=== PATIENT | male | born 1985 | race Hispanic/Latino ===

== ENCOUNTER → 2018-07-22 | Day surgery (SDC) | payer OTHER ==
[~2018-07-22] MED LIST: FENTANYL CITRATE/PF 100MCG/2 ML INJ ONE; LIDOCAINE HCL 2% LOCAL INJ 5 ML SDV VIAL INJ ONE; MIDAZOLAM HCL 2 MG/2 ML VIAL ONE; PANTOPRAZOLE SO40 MG PO; PROPOFOL IV EMULSION 10 MG/ML 20 ML VIAL ONE; ROCURONIUM BROMIDE 10 MG/ML 5ML VIAL ONE; SUCCINYLCHOLINE 200 MG/10 ML SYR ONE
--- OUTSIDE RECORDS SUMMARY | 2018-07-22 14:13 | XMS REPORT | Clinical Summary ---
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 Active HYDROcodone-acetaminophen Take 1 tablet 0 (VICODIN) 2.5-500 mg per by mouth tabletIndications: Pain every 6 (six) hours as needed. Active zolpidem (AMBIEN) 10 mg Take 10 mg by 0 tablet mouth every night as needed. Active aprepitant (EMEND) Take 125 mg 3 kit 3 125-80-80 mg capsule by mouth on 4 day 1 of chemo, and take 80 mg on days 2 and 3 of chemotherapy. Active dexamethasone (DECADRON) Take 8 mg (2 30 tablet 2 4 MG tablet tablets) on 4 days 2, 3 and 4 of chemotherapy Active ondansetron (ZOFRAN) 8 MG Take 8 mg by 90 tablet 3 tablet mouth on days 4 2, 3 and 4 of chemotherapy, and every 8 hours as needed for nausea Active LORazepam (ATIVAN) 1 MG Take every 8 60 tablet 2 tablet hours as 4 needed for nausea Status Hospital, Clinic, or Ordered Dose Route Frequency Start End Date Other Facility Date Administered Medication Active sodium chloride 0.9% (NS) 10 mL IK As needed 12/26/19 flush 10 mL 14 Active heparin (PF) injection 500 Units IK As needed 12/26/19 syringe 500 Units 14 Active heparin (PF) injection 500 Units IK As needed 01/09/20 syringe 500 Units 14 Active heparin (PF) injection 500 Units IK As needed 01/10/20 syringe 500 Units 14 Active sodium chloride 0.9% (NS) 10 mL IK As needed 01/30/20 flush 10 mL 14 Active heparin (PF) injection 500 Units IK As needed 01/30/20 syringe 500 Units 14 Active aprepitant (EMEND) 125 mg Oral Once 01/30/20 capsule 125 mg 14 Active sodium chloride 0.9% (NS) 10 mL IK As needed 02/20/20 flush 10 mL 14 Active heparin (PF) injection 500 Units IK As needed 02/20/20 syringe 500 Units 14 Ended iopamidol (ISOVUE-300) 100 mL IV IMG once as needed 07/27/19 injection 100 mL 18 8 Active Problems Problem Noted Date Dysphagia 11/19/2013 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 Encounters Care Team Description Date Type Specialty Freddy Burrows MD Throat pain (Primary Dx) 07/26/2017 Outside Orders Radiology after 07/21/2017 Family History Medical History Relation Name Comments Cancer Paternal pt believes breast ca Grandmother Relation Name Status Comments Paternal Grandmother Social History Date Tobacco Use Types Packs/Day Years Used Never Smoker Alcohol Use Drinks/Week oz/Week Comments No Sex Assigned at Date Recorded Not on file Industry Job Start Date Occupation Not on file Not on file Not on file Travel End Travel History Travel Start No recent travel history available. Last Filed Vital Signs Not on file Plan of Treatment Not on file Procedures Comments Procedure Name Priority Date/Time Associated Diagnosis CT SOFT TISSUE NECK WITH Routine 07/26/2017 IV CONTRAST 12:[address] CHEST WITH IV CONTRAST Routine 07/26/2017 12:00 PM CDT POCT-CREATININE Routine 07/26/2017 11:46 AM CDT after 07/21/2017 Results * CT chest with IV contrast (07/26/2017 12:00 PM CDT) Narrative Performed At FINAL REPORT [employer] [facility] HISTORY: r07.0 pain in throat COMPARISON : 09/19/2013 Technique : Multiple axial images of the chest were performed from the lung apices to the lung bases with the administration of IV contrast. Images were presented in both the lung and soft tissue windows. This exam was performed according to our departmental dose optimization program which includes automated exposure control, adjustment of the mA and/or kV according to patient size and/or use of iterative reconstructive technique. Comment: The thyroid gland is within normal limits. A right-sided Port-A-Cath is in place. There is no hilar or axillary lymphadenopathy. The previously seen enlarged superior and anterior mediastinal lymph nodes have significantly diminished in size/resolved. There are a few increased numbers of nonspecifically prominent superior mediastinal lymph nodes with the largest measuring up to 0.7 x 0.7 cm. The visualized portions of the spleen, adrenal glands, pancreas, and kidneys are within normal limits. There is a small left sided fat containing diaphragmatic hernia. There is hepatic steatosis. The osseous structures as well as the subcutaneous soft tissues are without any abnormalities. There is a right middle lobe calcified granuloma. There is no pleural effusion, pneumothorax or infiltrate. Impression: 1. Previously seen superior and anterior mediastinal lymph nodes have significantly diminished in size. There are a few remaining increased numbers of nonspecific mildly prominent superior mediastinal lymph nodes. 2. Hepatic steatosis. 3. Right lung calcified granuloma. Signed: Keira Malcolm MD Report Verified Date/Time:07/26/2017 12:59:15 Reading Location: [facility] Diagnostic Imaging Reading Room - [place] [address] Procedure Note Interface, External Ris In - 07/26/2017 1:01 PM CDT FINAL REPORT HISTORY: r07.0 pain in throat COMPARISON : 09/19/2013 Technique : Multiple axial images of the chest were performed from the lung apices to the lung bases with the administration of IV contrast. Images were presented in both the lung and soft tissue windows. This exam was performed according to our departmental dose optimization program which includes automated exposure control, adjustment of the mA and/or kV according to patient size and/or use of iterative reconstructive technique. Comment: The thyroid gland is within normal limits. A right-sided Port-A-Cath is in place. There is no hilar or axillary lymphadenopathy. The previously seen enlarged superior and anterior mediastinal lymph nodes have significantly diminished in size/resolved. There are a few increased numbers of nonspecifically prominent superior mediastinal lymph nodes with the largest measuring up to 0.7 x 0.7 cm. The visualized portions of the spleen, adrenal glands, pancreas, and kidneys are within normal limits. There is a small left sided fat containing diaphragmatic hernia. There is hepatic steatosis. The osseous structures as well as the subcutaneous soft tissues are without any abnormalities. There is a right middle lobe calcified granuloma. There is no pleural effusion, pneumothorax or infiltrate. Impression: 1. Previously seen superior and anterior mediastinal lymph nodes have significantly diminished in size. There are a few remaining increased numbers of nonspecific mildly prominent superior mediastinal lymph nodes. 2. Hepatic steatosis. 3. Right lung calcified granuloma. Signed: Keira Malcolm MD Report Verified Date/Time: 07/26/2017 12:59:15 Reading Location: [facility] Diagnostic Imaging Reading Room - [place] [address] Performing Organization Address City/State/Zipcode Phone Number [employer] * CT neck soft tissue with IV contrast (07/26/2017 12:00 PM CDT) Narrative Performed At FINAL REPORT [employer] CT neck with contrast 07/26/2017 1:29 PM CLINICAL HISTORY: r07.0 pain in throat TECHNIQUE: Axial contrast-enhanced CT images of the neck were obtained. Axially acquired data were reformatted in coronal and sagittal planes for further analysis. This examination was performed according to our departmental dose optimization program, which includes automated exposure control, adjustment of the mA and/or kV according to patient size, and/or use of iterated reconstruction technique. COMPARISON: 09/19/2013 FINDINGS: There is no mass or abnormal enhancement in the aerodigestive tract or surrounding soft tissue. There is no lymphadenopathy. There are no fluid collections. The salivary and thyroid glands are unremarkable. The visualized brain, orbits, paranasal sinuses, and tympanomastoid cavities are unremarkable. There is a deep caries in the right maxillary third molar. There is congenital spinal stenosis. Superimposed degenerative changes at C5-6 and C6-7 resulting in high-grade central canal stenosis. The visualized upper thorax is unremarkable. IMPRESSION: 1. No aerodigestive tract or soft tissue mass. 2. No cervical lymphadenopathy. 3. Dental disease. 4. Cervical spondylosis. Signed: Dirk Sandoval MD Report Verified Date/Time:07/26/2017 13:52:43 Reading Location: [facility] Radiology Reading Room Procedure Note Interface, External Ris In - 07/26/2017 1:54 PM CDT FINAL REPORT CT neck with contrast 07/26/2017 1:29 PM CLINICAL HISTORY: r07.0 pain in throat TECHNIQUE: Axial contrast-enhanced CT images of the neck were obtained. Axially acquired data were reformatted in coronal and sagittal planes for further analysis. This examination was performed according to our departmental dose optimization program, which includes automated exposure control, adjustment of the mA and/or kV according to patient size, and/or use of iterated reconstruction technique. COMPARISON: 09/19/2013 FINDINGS: There is no mass or abnormal enhancement in the aerodigestive tract or surrounding soft tissue. There is no lymphadenopathy. There are no fluid collections. The salivary and thyroid glands are unremarkable. The visualized brain, orbits, paranasal sinuses, and tympanomastoid cavities are unremarkable. There is a deep caries in the right maxillary third molar. There is congenital spinal stenosis. Superimposed degenerative changes at C5-6 and C6-7 resulting in high-grade central canal stenosis. The visualized upper thorax is unremarkable. IMPRESSION: 1. No aerodigestive tract or soft tissue mass. 2. No cervical lymphadenopathy. 3. Dental disease. 4. Cervical spondylosis. Signed: Dirk Sandoval MD Report Verified Date/Time: 07/26/2017 13:52:43 Reading Location: [facility] Radiology Reading Room Performing Organization Address City/[facility] [place] Phone Number RIS * POC-Creatinine (07/26/2017 11:46 AM CDT) POC-Creatinine 0.7Comment: TESTED AT [facility]-KG 0.6 - 1.3 mg/dL [facility] [address] [place] [address] POC-EGFR 131 mL/min/1.73M2 [facility] Specimen Blood Narrative Performed At Performing Organization Address City/[facility] [place] Phone Number [facility] [address] [place] [address] [facility] after 07/21/2017 Insurance Payer Benefit Subscriber ID Type Phone Address Plan / Group MEDICARE MEDICARE A xxxxxxxxxx Medicare B [facility] [place] HMO xxxxxxxxx HMO/POS CARE POS SELECT CHOICE
--- OUTSIDE RECORDS SUMMARY | 2018-07-22 14:14 | XMS REPORT ---
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 Allergies, Adverse Reactions, Alerts This patient has no known allergies or adverse reactions. Medications This patient has no known medications. Results Test Description Test Time Test Comments Text Results Atomic Results Result Comments CT, SOFT TISSUE NECK, CONTRAST 2017-07-26 13:52:[address] neck with contrast 07/26/2017 1:29 PM CLINICAL HISTORY: r07.0 pain in throat TECHNIQUE: Axial contrast-enhanced CT images of the neck were obtained. Axially acquired data were reformatted in coronal and sagittal planes for further analysis. This examination was performed according to our departmental dose optimization program, which includes automated exposure con trol, adjustment of the mA and/or kV according [...] 1. No aerodigestive tract or soft tissue mass.2. No cervical lymphadenopathy.3. Dental disease.4. Cervical spondylosis. Signed: Dirk Sandoval Verified Date/Time: 07/26/2017 13:52:43 Reading Location: [facility] Radiology Reading Room , CHEST, WITH CONTRAST 2017-07-26 12:59:00 FINAL REPORT HISTORY: r07.0 pain in throat [...] 3. Right lung calcified granuloma. Signed: Keira Hortaort Verified Date/Time: 07/26/2017 12:59:15 Reading Location: [facility] Diagnostic Imaging Reading Room - [place] [address] -CREATININE 2017-07-26 11:52:00 POC-CREATININE (BEAKER) (test ovxa=1697) 0.7 mg/dL 0.6-1.3 TESTED AT [address] [address] POC-EGFR (BEAKER) (test kged=0221) 131 mL/min/1.73M2
[2018-07-22 17:19] VITALS: BP 96/65
--- NOTE | 2018-07-23 08:38 | Operative Report ---
DATE OF PROCEDURE: 07/22/2018 SURGEON: Jimbo Spann MD PROCEDURES: Esophagogastroduodenoscopy with biopsies and esophageal dilatation. INDICATIONS FOR PROCEDURE: Dysphagia to solids, history of CA of esophagus. Status post chemoradiation therapy in 2014. MEDICATIONS: The patient was done under MAC. Please see anesthesiologist's note. PROCEDURE IN DETAIL: With the patient in left lateral decubitus position, a flexible fiberoptic Olympus gastroscope was introduced into the esophagus under direct visualization without any difficulty. There was some patchy erythema noted in distal esophagus. The GE junction was somewhat nodular and friable and stenotic. It was biopsied. I dilated to size 52-[place] Holman. The scope was then advanced with ease into the stomach. Mucosa overlying the antrum and the body revealed some patchy erythema, hmor-uw-lvnwkius edema, and biopsies were obtained, and sent to stain for H pylori. Pylorus was of normal contour and shape, was intubated with ease and the scope was advanced all the way to the second portion of the duodenum. Biopsies were obtained from the proximal second portion and the duodenal bulb. There was some focal nodularity also noted in the distal bulb, and biopsies were obtained. The scope was then withdrawn back into the stomach and retroflexed. Mucosa overlying the fundus and cardia appeared to be within normal limits. The scope was then straightened out. It was subsequently withdrawn. The patient tolerated the procedure well. IMPRESSION: 1. Distal esophagitis, mild. 2. Mild stricture, gastroesophageal junction, nodular, biopsied and dilated to size 52-[place] Holman. 3. Gastritis, biopsied, biopsy was sent to stain for Helicobacter pylori. 4. Focal nodularity distal bulb, biopsied. 5. Rule out sprue. PLAN: Follow up histology. Increase Protonix to 40 mg one p.o. before meals b.i.d. Check CEA. Obtain CT of chest and abdomen. Oncology consultation with Dr. Worrell. Jimbo Spann MD [facility] [place] /[id number] cc: MD Shiv Crews M.D.
== END | disposition home or self-care (01) ==
LOC: OR 14:12
PROVIDERS: ATTEND Internal Medicine Gastroenterology
DX: Z85.01 Personal history of malignant neoplasm of esophagus (principal); K20.9 Esophagitis, unspecified; K22.2 Esophageal obstruction; R13.10 Dysphagia, unspecified; K29.50 Unspecified chronic gastritis without bleeding; R13.19 Other dysphagia; Z95.828 Presence of other vascular implants and grafts; Z92.3 Personal history of irradiation
CPT/HCPCS: 43239; 43450; 82378; J2001; J2250; J2704

== ENCOUNTER → 2018-08-03 | Outpatient (CLI) | payer OTHER ==
[~2018-08-03] MED LIST changes: +DIATRIZOATE MEGL/DIATRIZOA SOD 30 ML BTL PO ONE; -FENTANYL CITRATE/PF 100MCG/2 ML INJ ONE; +IOPAMIDOL 370 MG/ML 200 ML INFUS..BTL INJ ONE; -LIDOCAINE HCL 2% LOCAL INJ 5 ML SDV VIAL INJ ONE; -MIDAZOLAM HCL 2 MG/2 ML VIAL ONE; -PROPOFOL IV EMULSION 10 MG/ML 20 ML VIAL ONE; -ROCURONIUM BROMIDE 10 MG/ML 5ML VIAL ONE; +SODIUM CHLORIDE 0.9% 50ML 50 ML ONE; -SUCCINYLCHOLINE 200 MG/10 ML SYR ONE
[2018-08-03 15:32] LABS: BLOOD UREA NITROGEN 12 mg/dL (7-26); BUN/CREATININE RATIO 12 (6-25); CREATININE, SERUM 1.04 mg/dL (0.72-1.25); EST GLOMERULAR FILTRATION RATE > 60 ML/MIN (60-)
--- NOTE | 2018-08-03 17:06 | Diagnostic Imaging Report ---
EXAMINATION: CT of the abdomen and pelvis with contrast. TECHNIQUE: Spiral CT images of the abdomen and pelvis were performed from the lung apices to the lesser trochanters after the intravenous administration of 100 cc of Isovue-370 and the oral administration of Gastroview. Coronal and sagittal reformatted images were obtained. COMPARISON: None CLINICAL HISTORY:History of esophageal cancer, abdominal pain DISCUSSION: CHEST: Lung bases are notable for a right middle lobe calcified granuloma. Minimal subsegmental atelectasis in the dependent lower lobes. Small Bochdalek diaphragmatic hernia on the left. ABDOMEN/PELVIS: Beam hardening artifact from the patient's arms positioned at his side throughout the examination limits evaluation of solid organs. HEPATOBILIARY:Hepatic parenchyma is diffusely hypoattenuating compatible with steatosis. No focal hepatic lesion. No intrahepatic biliary ductal dilatation. SPLEEN: No splenomegaly. PANCREAS: No focal masses or ductal dilatation. ADRENALS: No adrenal nodules. KIDNEYS/URETERS: Reticular focus of hypoattenuation in the interpolar left kidney is likely related to beam hardening artifact. No focal renal lesions. No hydronephrosis or calculus. PELVIC ORGANS/BLADDER: Urinary bladder is well distended. Prostate and seminal vesicles are unremarkable. PERITONEUM/RETROPERITONEUM: No free air or fluid. LYMPH NODES: No gastrohepatic ligament, upper abdominal, mesenteric, retroperitoneal, or pelvic sidewall lymphadenopathy. VESSELS: Abdominal aorta, major branch vessels, and iliac arterial systems are well-visualized and patent. Conventional celiac axis anatomy. 2 right renal arteries and a single left renal artery are widely patent. Portal vein, splenic vein, and central superior mesenteric vein are patent. GI TRACT: Large bowel shows no evidence of distention or wall thickening. Apparent narrowing of the midportion of the transverse colon is likely related to peristalsis. Normal appendix. Mild nonspecific distal esophageal wall thickening. Stomach and small bowel are unremarkable. BONES AND SOFT TISSUES: Bilateral gynecomastia. No osseous destructive lesions. IMPRESSION: Nonspecific concentric wall thickening of the distal esophagus may represent posttreatment changes. Correlation with upper endoscopy may be of benefit if not recently performed. No CT evidence of intra-abdominal or pelvic metastatic disease. Signed by: Dr. Ministerio Gage M.D. on 08/03/2018 5:03 PM
--- NOTE | 2018-08-03 17:56 | Diagnostic Imaging Report ---
CT SOFT TISSUE NECK W HISTORY: Esophageal cancer COMPARISON: None. TECHNIQUE: Axial CT images were obtained through the neck with intravenous, iodine based contrast. Coronal and sagittal reconstructions obtained from the axial data. One or more of the following dose reduction techniques were used: Automated exposure control, adjustment of the mA and/or kV according to patient size, and/or utilization of iterative reconstruction technique. DISCUSSION: The visualized upper aerodigestive tract is unremarkable. Please refer to concurrent chest CT for intrathoracic findings. No radiographically significant cervical adenopathy is seen. The thyroid gland is unremarkable. The submandibular and parotid glands are unremarkable. The major cervical vessels are unremarkable. The retail marketing specialist, parapharyngeal, posterior cervical, and perivertebral spaces are unremarkable. The visualized intracranial compartment and orbits are grossly unremarkable. There is a small retention cyst in the right maxillary sinus. There are mild degenerative changes throughout the spine. Right IJ chest port is in place. IMPRESSION: 1. The visualized upper aerodigestive tract is unremarkable. Please refer to concurrent chest CT for intrathoracic findings. 2. No radiographically significant cervical adenopathy. Signed by: Dr. Wing Guerrero M.D. on 08/03/2018 5:51 PM
--- NOTE | 2018-08-04 07:46 | Diagnostic Imaging Report ---
EXAM: CT Chest WITH contrast INDICATION: Esophageal cancer. COMPARISON: None. TECHNIQUE: Chest was scanned utilizing a multidetector helical scanner from the lung apex through the level of the adrenal glands without administration of IV contrast. Coronal and sagittal reformations were obtained. Routine protocol was performed. IV CONTRAST: 100 mL of Isovue 370 RADIATION DOSE: Total DLP: 1092 mGy*cm Dose modulation, iterative reconstruction, and/or weight based adjustment of the mA/kV was utilized to reduce the radiation dose to as low as reasonably achievable. COMPLICATIONS: None FINDINGS: LINES/ TUBES: Right-sided chest port with catheter tip in the mid SVC. LUNGS AND AIRWAYS: The central airways are patent. There is calcified granuloma in the right middle lobe. Small left fat-containing Bochdalek hernia. Patchy dependent atelectasis. No evidence of pneumonia or pulmonary edema. PLEURA: The pleural spaces are clear. HEART AND MEDIASTINUM: No mediastinal, hilar or axillary lymphadenopathy. Small nonspecific upper mediastinal lymph nodes, measuring up to 0.5 cm short axis. The heart is normal in size.. There is no pericardial effusion. No evidence of central pulmonary embolism. There is mild concentric wall thickening in the distal esophagus. UPPER ABDOMEN: Please see the separate dictation for the concurrently performed abdomen and pelvis CT for a detailed discussion of intra-abdominal findings. BONES: The visualized bony thorax is within normal limits. SOFT TISSUES: Unremarkable. IMPRESSION: No evidence of metastatic disease within the thorax. Mild concentric wall thickening in the distal esophagus. This may reflect post treatment changes, however may be correlated with endoscopy if clinically indicated. Signed by: Dr. David Osorio MD on 08/04/2018 7:43 AM
== END ==
LOC: CT 14:35
PROVIDERS: ATTEND Internal Medicine Gastroenterology
DX: R10.9 Unspecified abdominal pain (principal); Z85.01 Personal history of malignant neoplasm of esophagus
CPT/HCPCS: 36415; 70491; 71260; 74177; 82565; 84520; Q9967

== ENCOUNTER → 2021-05-18 | Day surgery (SDC) | payer OTHER ==
[~2021-05-18] MED LIST changes: +ATORVASTATIN CA10 MG PO; -DIATRIZOATE MEGL/DIATRIZOA SOD 30 ML BTL PO ONE; +GLIMEPIRIDE2 MG PO; +GLIPIZIDE5 MG PO; +HUMALOG MI100 UNIT/2 SQ; +INVOKANA100 MG PO; -IOPAMIDOL 370 MG/ML 200 ML INFUS..BTL INJ ONE; +LEVOTHYROXINE112 MCG PO; +LIDOCAINE HCL 2% LOCAL INJ 5 ML SDV VIAL INJ ONE; +METOCLOPRAMIDE HCL 10 MG/2ML VIAL ONE; +MIDAZOLAM HCL 2 MG/2 ML VIAL ONE; +PROPOFOL IV EMULSION 10 MG/ML 20 ML VIAL ONE; +TRESIBA100 UNIT/1 SC; +[UNRECOGNIZED DRUG - OTHER]
[2021-05-18 08:30] VITALS: BP 114/75
== END | disposition home or self-care (01) ==
LOC: OR 06:51
PROVIDERS: ATTEND Internal Medicine Gastroenterology
DX: K29.50 Unspecified chronic gastritis without bleeding (principal); K31.7 Polyp of stomach and duodenum; K31.84 Gastroparesis; K22.89 Other specified disease of esophagus; K44.9 Diaphragmatic hernia without obstruction or gangrene; Z85.01 Personal history of malignant neoplasm of esophagus; Z01.810 Encounter for preprocedural cardiovascular examination; Z01.812 Encounter for preprocedural laboratory examination; Z20.822 Contact with and (suspected) exposure to COVID-19; Z79.4 Long term (current) use of insulin; Z79.899 Other long term (current) drug therapy
CPT/HCPCS: 36415; 43239; 82948; 93005; C9113; J2001; J2250; J2704; J2765; U0002